=== PATIENT | female | born 1985 | race Caucasian/White ===

== ENCOUNTER 2018-09-06 09:58 | Emergency (ER) | payer OTHER ==
[2018-09-06 10:11] VITALS: BP 150/88; TEMP 98.7; BMI 36.5
[2018-09-06] MEDS ORDERED: SODIUM CHLORIDE 1,000 ML IV STA (10:32)
[2018-09-06] MEDS ORDERED: DILAUDID 1 MG/ML SYRINGE IVP STA ×2 (10:36→12:34)
[2018-09-06] MEDS ORDERED: ZOFRAN 4 MG/2 ML IVP STA ×2 (10:36→12:24)
--- NOTE | 2018-09-06 10:41 | ED.PDOC ---
General ED Provider: Dr. NELDA FLORES Chief Complaint: Abdominal Pain Stated Complaint: Severe lower abdominal pain. Onset last evening located in periumbilical region with worsening this mornning. 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 Severe pain RLQ which became noticably worse driving to hospital. Time Seen by Physician: 10:15 Mode of Arrival: Walk-In Information Source: Patient Exam Limitations: No limitations Primary Care Provider: NELDA PARK Nursing and Triage Documentation Reviewed and Agree: Yes Does patient meet sepsis criteria?: No If yes, has appropriate treatment been initiated?: No System Inflammatory Response Syndrome: Not Applicable Sepsis Protocol: For patient's 13 years and over: Temp is 96.8 and below OR 101 and greater Pulse >90 BPM Resp >20/minute Acutely Altered Mental Status Are patient's symptoms suggestive of a new infection, such as: -Pneumonia -Skin, Soft Tissue -Endocarditis -UTI -Bone, Joint Infection -Implantable Device -Acute Abdominal Infection -Wound Infection -Meningitis -Blood Stream Catheter Infection -Unknown Review of Systems - Review Of Systems Constitutional: Reports: No symptoms Eyes: Reports: No symptoms Ears, Nose, Mouth, Throat: Reports: No symptoms Respiratory: Reports: No symptoms Cardiac: Reports: No symptoms GI: Reports: Abdomen distended, Abdominal pain, Nausea, Poor appetite, Poor fluid intake : Reports: No symptoms Musculoskeletal: Reports: No symptoms Skin: Reports: No symptoms Neurological: Reports: No symptoms Endocrine: Reports: No symptoms Hematologic/Lymphatic: Reports: No symptoms All Other Systems: Reviewed and Negative Past Medical History - Past Medical History Endocrine: Reports: None Cardiovascular: Reports: None Respiratory: Reports: None Hematological: Reports: None Gastrointestinal: Reports: None Genitourinary: Reports: None Neuro/Psych: Reports: None Musculoskeletal: Reports: Joint Pain ( RT ROTATOR CUFF,) Cancer: Reports: None Last Menstrual Period: 10 years, mirena - Surgical History General Surgical History: Reports: Orthopedic - Family History Family History: Reports: Unknown - Social History Smoking Status: Current every day smoker Hx Substance Use: No Alcohol Screening: Occasionally Physical Exam - Physical Exam Appearance: Ill-appearing, Obese Ill-appearing: Mild Pain Distress: Moderate Eyes: BONILLA, EOMI, Conjunctiva clear ENT: Ears normal, Nose normal, Oropharynx normal Neck: Supple Respiratory: Airway patent, Breath sounds clear, Breath sounds equal Cardiovascular: RRR, Pulses normal, No rub GI/: Soft, Tender, Bowel sounds hypoactive (Rebound tenderness and guarding ) Musculoskeletal: Normal strength, ROM intact, No edema, No calf tenderness Skin: Warm, Dry, Normal color Neurological: Sensation intact, Motor intact, Reflexes intact, Cranial nerves intact, Alert, Oriented Psychiatric: Affect appropriate, Mood appropriate Interpretation - Radiology Interpretation Radiology Interpretation By: Radiologist Radiology Results: Positive Xray Comments: Spoke with Dr Rudd 11:42 hr-Dx Acute Appendicitis/disc results patient Re-Evaluation - Re-Evaluation Time of Re-Evaluation: 12:00 Vital Signs Stable: Yes Appearance: NAD Lungs: Clear Skin: Warm and Dry Neuro: Alert and Oriented X3 CV: RRR Physician Notification - Case Discussed Physician Notified: Dr Denton [facility] for [facility] treatment per patients request Time of Notification: 11:15 (Krishna ARMENDARIZ spoke with Surg nurse Coordinator) Critical Care Note - Critical Care Note Total Time (mins): 30 Course - Course Hematology/Chemistry: 09/06/18 08:00 09/06/18 08:00 Orders, Labs, Meds: Lab Review 09/06/18 09/06/18 09/06/18 08:00 08:00 08:25 WBC 18.50 H RBC 5.07 Hgb 14.9 Hct 43.5 MCV 85.8 MCH 29.4 MCHC 34.3 RDW Coeff of Luis 12.7 Plt Count 428 Immature Gran % (Auto) 0.3 Neut % (Auto) 75.9 Lymph % (Auto) 14.9 [place] % (Auto) 6.3 Eos % (Auto) 2.1 Baso % (Auto) 0.5 Immature Gran # (Auto) 0.1 Neut # (Auto) 14.0 H Lymph # (Auto) 2.8 [place] # (Auto) 1.2 Eos # (Auto) 0.4 Baso # (Auto) 0.1 Sodium 140.1 Potassium 3.95 Chloride 100.9 Carbon Dioxide 28.0 Anion Gap 15.15 BUN 10.8 Creatinine 0.60 Estimated GFR (MDRD) 117.00 BUN/Creatinine Ratio 18.00 Glucose 102.7 Calcium 9.26 Total Bilirubin 0.48 AST 23.4 ALT 15.7 Alkaline Phosphatase 94.2 Total Protein 7.90 Albumin 4.71 Globulin 3.19 Albumin/Globulin Ratio 1.47 Serum , Qual Urine Color Yellow Urine Clarity Clear Urine pH 5.5 Ur Specific [place] >=1.030 Urine Protein Negative Urine Glucose (UA) Negative Urine Ketones Negative Urine Blood Negative Urine Nitrite Negative Urine Bilirubin Negative Urine Urobilinogen 0.2 Ur Leukocyte Esterase Negative 09/06/18 10:45 WBC RBC Hgb Hct MCV MCH MCHC RDW Coeff of Luis Plt Count Immature Gran % (Auto) Neut % (Auto) Lymph % (Auto) [place] % (Auto) Eos % (Auto) Baso % (Auto) Immature Gran # (Auto) Neut # (Auto) Lymph # (Auto) [place] # (Auto) Eos # (Auto) Baso # (Auto) Sodium Potassium Chloride Carbon Dioxide Anion Gap BUN Creatinine Estimated GFR (MDRD) BUN/Creatinine Ratio Glucose Calcium Total Bilirubin AST ALT Alkaline Phosphatase Total Protein Albumin Globulin Albumin/Globulin Ratio Serum , Qual Negative Urine Color Urine Clarity Urine pH Ur Specific [place] Urine Protein Urine Glucose (UA) Urine Ketones Urine Blood Urine Nitrite Urine Bilirubin Urine Urobilinogen Ur Leukocyte Esterase Orders Category Date Time Status NPO REMINDER: IMAGING ONCE CARE 09/06/18 10:35 Active NPO REMINDER: IMAGING ONCE CARE 09/06/18 12:24 Active CBC W/ AUTO DIFF Stat LAB 09/06/18 08:00 Completed CMP [COMPREHENSIVE METABOLIC PANEL] Stat LAB 09/06/18 08:00 Completed HCG QUALITATIVE [SERUM ] Stat LAB 09/06/18 10:45 Completed UA [URINALYSIS C & S IF INDICATED] Stat LAB 09/06/18 08:25 Completed Hydromorphone HCl [Dilaudid 1 mg/ml Syringe] MEDS 09/06/18 10:36 Discontinued 0.5 mg IVP ONCE STA Hydromorphone HCl [Dilaudid 1 mg/ml Syringe] MEDS 09/06/18 12:34 Discontinued 1 mg IVP ONCE STA Ondansetron HCl/Pf [Zofran 4 mg/2 ml] MEDS 09/06/18 10:36 Discontinued 4 mg IVP ONCE STA Ondansetron HCl/Pf [Zofran 4 mg/2 ml] MEDS 09/06/18 12:24 Discontinued 4 mg IVP ONCE STA Ringers Lactated Solution [Lactated Ringers] 1,000 ml MEDS 09/06/18 12:23 Active IV 125 mls/hr Sodium Chloride 0.9% [Sodium Chloride] 1,000 ml MEDS 09/06/18 10:[address] ABDOMEN/PELVIS W/WO CONTRAS Stat RADS 09/06/18 10:32 Completed Medications Generic Name Dose Route Start Last Admin Trade Name Yaneth PRN Reason Stop Dose Admin Lactated Ringer's 1,000 mls @ 125 mls/hr 09/06/18 12:23 Lactated Ringers IV 09/06/18 20:22 .Q8H STA Discontinued Medications Generic Name Dose Route Start Last Admin Trade Name Yaneth PRN Reason Stop Dose Admin Hydromorphone HCl 0.5 mg 09/06/18 10:36 09/06/18 10:57 Dilaudid 1 Mg/Ml Syringe IVP 09/06/18 10:37 0.5 mg ONCE STA Administration Hydromorphone HCl 1 mg 09/06/18 12:34 09/06/18 12:42 Dilaudid 1 Mg/Ml Syringe IVP 09/06/18 12:35 1 mg ONCE STA Administration Sodium Chloride 1,000 mls @ 1,000 mls/hr 09/06/18 10:32 09/06/18 10:58 Sodium Chloride IV 09/06/18 11:31 1,000 mls/hr BOLUS STA Administration Ondansetron HCl 4 mg 09/06/18 10:36 09/06/18 10:57 Zofran 4 Mg/2 Ml IVP 09/06/18 10:37 4 mg ONCE STA Administration Ondansetron HCl 4 mg 09/06/18 12:24 09/06/18 12:42 Zofran 4 Mg/2 Ml IVP 09/06/18 12:25 4 mg ONCE STA Administration Vital Signs: Temp Pulse Resp BP Pulse Ox 09/06/18 09:58 98.7 F 92 H 20 150/88 H 97 Departure - Departure Time of Disposition: 12:30 Disposition: TSF SHORT-TRM HOSP Discharge Problem: Acute appendicitis Condition: Fair Pt referred to PMD for follow-up: Yes (post hosp) IPMP verified?: No Allergies/Adverse Reactions: Allergies yogurt Adverse Reaction (Uncoded 09/06/18 10:07) Home Medications: Ambulatory Orders Levonorgestrel [Mirena] 1 each IY DAILY 01/09/13 Disposition Discussed With: Patient, Other (Surgeon) Additional Comments Additional Comments: ER training director Krishna called for surgical consult at [place] per patients request due to her [place] insurance coverage. Intake nurse contacted Dr Aggarwal -pts preference who completed gall bladder surgery in past. He review case and accepted patient -send CT Abdomen Disc to review. Arrangements for transfer made .
--- NOTE | 2018-09-06 11:49 | CT ---
EXAM: CT of the abdomen pelvis with and without contrast History: Right lower quadrant abdominal pain. Technique: Multiplanar CT images through the abdomen pelvis were obtained with and without the admini stration of IV contrast Comparison: CT abdomen pelvis 07/13/2015 Findings: Lung bases are clear. No acute osseous abnormalities. No renal stones and no hydronephrosis. Status post cholecystectomy. Long right lobe of the liver. No focal liver or splenic lesions. A splenule is again seen. Pancreas is within normal limits. No renal masses. No bowel obstruction. The appendix is dilated measuring 1 cm in caliber with adjacent inflammation and appendicolith. Intrauterine device is seen. No bladder wall thickening. No perir ectal inflammation. No free air and no ascites. Colonic diverticulosis. Small fat-containing ventr al hernia Impression: Acute uncomplicated appendicitis. No free air and no abscess. Critical results communicated to Dr. Moeller at 11:42 a.m. 09/06/2018
[2018-09-06] MEDS ORDERED: LACTATED RINGERS 1,000 ML IV STA (12:23)
== END 2018-09-06 12:57 | disposition short-term general hospital (02) ==
LOC: ED 09:58
DX: K35.80 Unspecified acute appendicitis (principal); F17.210 Nicotine dependence, cigarettes, uncomplicated
CPT/HCPCS: 36415; 80053; 81001; 84703; 85025; 96361; 96374; 96375; 96376; 99285